=== PATIENT | female | born 2000 | race Caucasian/White ===

== ENCOUNTER 2019-07-21 09:58 | Emergency (ER) | payer BC ==
--- NOTE | 2019-07-21 10:04 | EDM.PDOC ---
ED HPI GENERAL MEDICAL PROBLEM - General Chief Complaint: Bite:Animal, Insect Stated Complaint: CAT BITE ON RIGHT ARM Time Seen by Provider: 07/21/19 10:03 Source of Information: Reports: Patient History Limitations: Reports: No Limitations - History of Present Illness INITIAL COMMENTS - FREE TEXT/NARRATIVE: HISTORY AND PHYSICAL: History of present illness: Patient is a 18-year-old female who presents to the emergency room with complaints of a cat bite to her right forearm. She states her neighbor's cat, who is up-to-date on its vaccinations, had bit her forearm last night while they were outside. There is some slight redness and tenderness at the site with palpation. She states she washed the area thoroughly last evening and again this morning. She is unsure of her last tetanus update. Patient denies any fever, chills, headache, change in vision, syncope or near syncope. Denies any cardiac or respiratory symptoms. Denies any eye or symptoms. No chance of . Patient has been eating and drinking appropriately. Review of systems: As per history of present illness and below otherwise all systems reviewed and negative. Past medical history: As per history of present illness and as reviewed below otherwise noncontributory. Surgical history: As per history of present illness and as reviewed below otherwise noncontributory. Social history: See social history for further information Family history: As per history of present illness and as reviewed below otherwise noncontributory. Physical exam: General: Well-developed and well-nourished 18-year-old female. Alert and oriented. Nontoxic-appearing and in no acute distress. HEENT: Atraumatic, normocephalic, pupils equal and reactive bilaterally, negative for conjunctival pallor or scleral icterus, mucous membranes moist, TMs normal bilaterally, throat clear, neck supple, nontender, trachea midline. No drooling or trismus noted. No meningeal signs. No hot potato voice noted. Lungs: Clear to auscultation, breath sounds equal bilaterally. Heart: S1S2, regular rate and rhythm without overt murmur Abdomen: Soft, nondistended, nontender. Skin: Mild erythema noted to 4 puncture sites noted to the mid right forearm. Area was traced with a surgical marker. Otherwise remaining skin is intact, warm, dry. No lesions or rashes noted. Extremities: Atraumatic, moves all extremities per self without difficulty or deficits. Neurovascular unremarkable. Neuro: Awake, alert, oriented. Cranial nerves II through XII unremarkable. Cerebellum unremarkable. Motor and sensory unremarkable throughout. Exam nonfocal. Notes: The area on the forearm that is mildly erythematous was traced with a surgical marker with education to the patient to keep a close eye on it. We discussed signs and symptoms that would prompt her to return to the emergency room. Medication and supportive care measures were reviewed and discussed. Voices understanding and is agreeable to plan of care. Denies any further questions or concerns at this time. Diagnostics: None Therapeutics: Tdap Prescription: Augmentin Impression: Animal Bite Plan: 1. Keep the area clean and dry. Continue to monitor for signs of infection. The antibiotic as directed 2. Tylenol and/or ibuprofen as needed for pain management. 3. Please follow-up with your primary care provider in the next 1-2 days. Return to the ED as needed and as discussed. Definitive disposition and diagnosis as appropriate pending reevaluation and review of above. - Related Data Home Meds: Home Meds Ciprofloxacin HCl [Cipro] 500 mg PO BID #10 tablet 03/10/18 [Rx] Amoxicillin/Clavulanate K [Augmentin 875-125 MG] 1 tab PO BID 10 Days #20 tablet 07/21/19 [Rx] Past Medical History - Past Health History Medical/Surgical History: Denies Medical/Surgical History Social & Family History - Family History Family Medical History: Noncontributory - Caffeine Use Caffeine Use: Reports: None ED ROS GENERAL - Review of Systems Review Of Systems: Comprehensive ROS is negative, except as noted in HPI. ED EXAM, ANIMAL BITE - Physical Exam Exam: See Below (See dictation) Course - Orders/Labs/Meds Orders: Active Orders 24 hr Category Date Time Status Vaccines to be Administered [RC] PER UNIT ROUTINE Care 07/21/19 10:11 Ordered Meds: Medications Discontinued Medications Generic Name Dose Route Start Last Admin Trade Name Freq PRN Reason Stop Dose Admin Diphtheria/Tetanus/Acell Pertussis 0.5 ml 07/21/19 10:11 Adacel IM 07/21/19 10:12 .ONCE ONE Departure - Departure Time of Disposition: 10:16 Disposition: Home, Self-Care 01 Clinical Impression: Animal bite of forearm Qualifiers: Encounter type: initial encounter Laterality: right Qualified Code(s): S51.851A - Open bite of right forearm, initial encounter - Discharge Information Prescriptions: Amoxicillin/Clavulanate K [Augmentin 875-125 MG] 1 tab PO BID 10 Days #20 tablet Instructions: Animal Bite, Adult, [id number] Forms: ED Department Discharge Additional Instructions: The following information is given to patients seen in the emergency department who are being discharged to home. This information is to outline your options for follow-up care. We provide all patients seen in our emergency department with a follow-up referral. The need for follow-up, as well as the timing and circumstances, are variable depending upon the specifics of your emergency department visit. If you don't have a primary care physician on staff, we will provide you with a referral. We always advise you to contact your personal physician following an emergency department visit to inform them of the circumstance of the visit and for follow-up with them and/or the need for any referrals to a consulting specialist. The emergency department will also refer you to a specialist when appropriate. This referral assures that you have the opportunity for follow-up care with a specialist. All of these measure are taken in an effort to provide you with optimal care, which includes your follow-up. Under all circumstances we always encourage you to contact your private physician who remains a resource for coordinating your care. When calling for follow-up care, please make the office aware that this follow-up is from your recent emergency room visit. If for any reason you are refused follow-up, please contact the [facility] Emergency Department at and asked to speak to the emergency department charge nurse. [facility] [address] [place] [address] [id number] [address] [address] 1. Keep the area clean and dry. Continue to monitor for signs of infection. Take the antibiotic as directed. 2. Tylenol and/or ibuprofen as needed for pain management. 3. Please follow-up with your primary care provider in the next 1-2 days. Return to the ED as needed and as discussed. Sepsis Event Note - Focused Exam Date Exam was Performed: 07/21/19 Time Exam was Performed: 10:13 - My Orders Last 24 Hours: My Active Orders 07/21/19 10:11 Vaccines to be Administered [RC] PER UNIT ROUTINE - Assessment/Plan Last 24 Hours: My Active Orders 07/21/19 10:11 Vaccines to be Administered [RC] PER UNIT ROUTINE
[2019-07-21] MEDS ORDERED: Diphtheria,Pertussis(Acell),Tetanus Vaccine 0.5 ML Syringe IM ONE (10:11)
== END 2019-07-21 10:45 | disposition home or self-care (01) ==
LOC: MW.ED 09:58
DX: S51.851A Open bite of right forearm, initial encounter (principal); Z23 Encounter for immunization; W55.01XA Bitten by cat, initial encounter
CPT/HCPCS: 90471; 90715; 99282; 99283